=== PATIENT | female | born 1945 | race Caucasian/White ===

== ENCOUNTER 2018-02-05 13:20 | Inpatient (IN) | payer MEDICARE, BC ==
[2018-02-05] MEDS ORDERED: NS 0.9% 1000 ML* 1,000 ML IV ONE (13:21)
--- NOTE | 2018-02-05 13:29 | ED ---
Neurological HPI - HPI Summary HPI Summary: Patient is a 72 y/o F presenting to ED with complaints of seizure and stroke Sx. Katya coker called at 1304. Patient arrived at 1319, provider evaluated patient immediately at this time and sent directly to CT scan. Hx from EMS and . Pt is a 72 yo female with a medical history significant for atrial fibrillation, on eliquis. Pt this morning got dressed, came down stairs. Pts states she was holding her right arm in extension and "stiff" stating she was looking for something. states was not slurring her words, but was not able to carry a normal conversation. A neighbor, a nurse, came to [facility] pt and called 911. Pt enroute, pt developed grandmal seizure and became unresponsive. Pt enroute, MS improved. Upon arrival, pt alert and appropriate. Pt unable to give hx of this morning. Pt aware in hospital. No h/o seizure, stroke. Pt denies pain, sob, abd pain. Denies n/v/d. Upon examination, airway is good. PMHx of Afib is reported, EMS state that patient is on Eliquis. BG was 123. Patient was sent to CT at 1320. Katya moya called -Home medications and allergies are reviewed. - History of Current Complaint Stated Complaint: KATYA COKER Time Seen by Provider: 02/05/18 13:20 Hx Obtained From: Patient, Family/Personal Protection Specialist - , daughter, EMS Onset/Duration: Started hours ago - onset 1215 Current Severity: None - pain denied Number of Seizures: 1 Pain Intensity: 0 Pain Scale Used: 0-10 Numeric - 0/10 Character: Impaired Speech, Confusion, Other: - seizure, right arm stiffness Aggravating: Nothing Alleviating: Nothing Associated Signs and Symptoms: Positive: Confusion, Seizure, Impaired Speech. Negative: Headache - Allergy/Home Medications Allergies/Adverse Reactions: Allergies Allergy/AdvReac Type Severity Reaction Status Date / Time No Known Allergies Allergy Verified 02/05/18 14:02 Home Medications: Home Medications Apixaban* [Eliquis*] 5 mg PO BID 02/05/18 [History Confirmed 02/05/18] Metoprolol Tartrate TAB* [Lopressor TAB*] 150 mg PO BID 02/05/18 [History Confirmed 02/05/18] Mometasone NASAL (NF) [Nasonex (NF)] 2 spray BOTH NARES DAILY 02/05/18 [History Confirmed 02/05/18] Valsartan/HCTZ 320/25(NF) [Diovan Hct 320/25(NF)] 1 tab PO DAILY 02/05/18 [ History Confirmed 02/05/18] PMH/Surg Hx/FS Hx/Imm Hx Previously Healthy: Yes Endocrine/Hematology History: Reports: Hx Anticoagulant Therapy Cardiovascular History: Reports: Hx Atrial Fibrillation Denies: Hx Hypercholesterolemia, Hx Hypertension Sensory History: Denies: Hx Legally Blind, Hx Deafness Opthamlomology History: Denies: Hx Legally Blind EENT History: Denies: Hx Deafness Neurological History: Denies: Hx CVA, Hx Seizures - Family History Known Family History: Negative: Blood Disorder - Social History Alcohol Use: Occasionally Substance Use Type: Reports: None Smoking Status (MU): Never Smoked Tobacco Review of Systems Positive: Other - MA changes Eyes: Negative ENT: Negative Negative: Shortness Of Breath Negative: Abdominal Pain, Vomiting, Diarrhea, Nausea Neurological: Other - POSITIVE - SEIZURE, RIGHT ARM STIFFNESS, IMPAIRED SPEECH Negative: Headache Psychological: Other - POSITIVE - CONFUSION All Other Systems Reviewed And Are Negative: Yes Physical Exam - Summary Physical Exam Summary: Vital Signs Reviewed: Yes A+O to name, not place, year or president Eyes: Conjunctiva Clear, FIONA. EOM intact and full pt with right visual field cut, mild neglect ENT: Hearing grossly normal TM x 2 clear, pt with dried blood lips, small lac to tongue. No airwar concern/edema. Pt states teeth feel wnl mmoist, uvula midline, no exudate, no erythema Neck: Positive: Supple Respiratory: Positive: No respiratory distress, No accessory muscle use + CTA throughout no w/r Cardiovascular: raoid irregular, nl s1, s2 no m/r CBT <2 sec abd soft + BS nt/nd no guarding, no distension Musculoskeletal Exam: + upper ext elevation against gravity, + SLE Neurological: Positive: Alert - see NIH - left visual field deficit, intermittent right side neglect +FNF intermittent poor second to right neglect+ heel/mejia b/l Psychological: Positive: Normal Response To Family Skin: Positive: no rash, no ecchymosis - dried blood to lip Triage Information Reviewed: Yes Diagnostics - Laboratory Result Diagrams: 02/05/18 13:48 02/05/18 14:47 Lab Statement: Any lab studies that have been ordered have been reviewed, and results considered in the medical decision making process. - Radiology CXR Radiology Interpretation Completed By: Radiologist Summary of Radiographic Findings: IMPRESSION: NO ACTIVE CARDIOPULMONARY DISEASE. THIS REPORT WAS REVIEWED BY ED PHYSICIAN. - CT brain ct CT Interpretation Completed By: Radiologist Summary of CT Findings: IMPRESSION: No intracranial mass or hemorrhage is noted. This report was reviewed by ED physician. cta head/neck CT Interpretation Completed By: Radiologist Summary of CT Findings: IMPRESSION: 1. 1.9 CM LOBULATED NODULE OF THE RIGHT LUNG APEX. THE DIFFERENTIAL INCLUDES PULMONARY. PARENCHYMAL NEOPLASM. RECOMMEND CONSIDERATION OF FURTHER EVALUATION WITH DEDICATED IMAGING. OF THE CHEST, INCLUDING PET/CT AND/OR CONSIDERATION OF TISSUE SAMPLING. 2. ATHEROMATOUS DISEASE, WITHOUT INTERNAL CAROTID ARTERY STENOSIS BY NASCET CRITERIA. 3. NO ANEURYSM, VASCULAR MALFORMATION, OCCLUSION, OR STENOSIS OF THE VISUALIZED. INTRACRANIAL CIRCULATION. 4. THERE IS A HIGH ENTRY OF THE RIGHT VERTEBRAL ARTERY INTO THE FORAMEN TRANSVERSARIUM. WHICH IS CONSIDERED AN ANATOMIC VARIANT, BUT MAY PREDISPOSE TO DISSECTION. THIS REPORT WAS REVIEWED BY ED PHYSICIAN. - EKG 1335 Cardiac Rate: Other Rate - afib with rate of 142 BPM EKG Rhythm: Atrial Fibrillation Summary of EKG Findings: EKG showed rapid afib with rate of 142 BPM, no acute changes. NIH Scale - NIH Scale Level of Consciousness: Alert/Keenly Responsive Ask Patient the Month and His/Her Age: One Correct/Not Aphasic Ask Pt to Open/Close Eyes and Framing Specialist/Release Non-Paretic Hand: Both Correctly Best Gaze (Only Horizontal Eye Movement): Normal Visual Field Testing: Complete Hemianopia Facial Paresis-Pt to Smile & Close Eyes or Grimace Symmetry: Normal/Symmetrical Motor Function - Right Arm: No Drift-Holds 10 Seconds Motor Function - Left Arm: No Drift-Holds 10 Seconds Motor Function - Right Leg: No Drift-Holds 10 Seconds Motor Function - Left Leg: No Drift-Holds 10 Seconds Limb Ataxia-Must be out of Proportion to Weakness Present: Absent Sensory (Use Pinprick to Test Arms/Legs/Trunk/Face): Normal Best Language (Describe Picture, Name Items): No Aphasia Dysarthria (Read Several Words): Normal Extinction and Inattention: Inattention Total Score: 4 Re-Evaluation - Re-Evaluation First Eval Re-Evaluation Time: 13:30 Comment: Patient had returned from CT, Dr. Perez in to evaluate patient with Dr. Villagran at this time, stroke scale obtained. Will start cardizem drip with bolus for rapid afib. will send for CTA. 1000mg Keppra Second Eval Re-Evaluation Time: 13:50 Comment: Pt improved, mentation improved with hx, continues disoriented. labs reveal decreased potassium, calcium - will recheck ? from IVF. CTA without acute obstruction. Cardizem drip just started. will plan to admit to [facility] after discussion with . Of note, pt with lubular finding upper lung field on neck CTA. d/w pt. and daugher - will likley be further eval during admission - state understanding and agreement with plan Third Eval Re-Evaluation Time: 15:35 Comment: repeat labs normal. Dr Hyde accepting pt Course/Dx - Course Course Of Treatment: Patient presents by EMS. Patient's feels he with a history of A. fib. This morning patient had some unusual behaviors with extension of her right arm and some confusion. Patient's had a neighbor evaluated patient. There is concern for stroke some patient had a grand mal seizure. Patient unresponsive but has improved. Patient noted be in rapid A. fib at today's evaluation. Upon arrival patient with a laceration to her tongue and dry blood on her oropharynx. Patient's noted to have good movement of her thumb is fine 4. Patient does have right visual field cut since intermittent right-sided neglect. Will closely was called. Dr. Villagran summoned to ED. We'll monitor closely. - Diagnoses Provider Diagnoses: New onset seizure, Change in mental status, Rapid atrial fibrillation During the Visit The Following Alert/Code Occurred: Code Moya - 1304 - Physician Notifications Discussed Care Of Patient With: Anaya Braxton Time Discussed With Above Provider: 13:33 Instructed by Provider To: Other - Dr. Braxton called with preliminary readings of brain CT at 1333. 1342 - Dr. Villagran recommends CTA Head, he is agreeable with cardizem. 1445 - discussed results of imaging further with Dr. Villagran, he recommends patient be placed on Keppra 1000 mg and admission. 1529 - Patient's case was discussed with Dr. Hyde, Dr. Hyde accepts for admission. - Critical Care Time Critical Care Time: 30-74 min Discharge - Sign-Out/Discharge Documenting (check all that apply): Patient Departure - ADMIT - Discharge Plan Condition: Stable Disposition: ADMITTED TO [facility] Referrals: No Primary Care Phys,NOPCP [Primary Care Provider] - - Billing Disposition and Condition Condition: STABLE Disposition: Admitted to [facility] - Attestation Statements Document Initiated by Scribe: Yes Documenting Scribe: MERNA LEBRON Provider For Whom Cornel is Documenting (Include Credential): FOZIA PEREZ MD Scribe Attestation: MERNA Juárez, scribed for FOZIA PEREZ MD on 02/05/18 at 1541. Scribe Documentation Reviewed: Yes Provider Attestation: The documentation as recorded by the MERNA gutierrez accurately reflects the service I personally performed and the decisions made by me, FOZIA PEREZ MD Status of Scribe Document: Viewed
[2018-02-05] MEDS ORDERED: Diltiazem IV* 5 MG/ML 5 ML VIAL (for loading dose/IV Push) (25 MG) ONE (13:38)
[2018-02-05] MEDS ORDERED: levETIRAcetam IV* 1,000 MG in NS 0.9% 100 ML* 100 ML IVPB ONE (13:42)
[2018-02-05] MEDS ORDERED: Diltiazem IV* 5 MG/ML 5 ML VIAL (for loading dose/IV Push) (25 MG) IV SLOW PU ONE (13:46)
[2018-02-05 13:57] LABS: ABS Basophils 0.1 10^3/ul (0-0.2); ABS Eosinophils 0.1 10^3/ul (0-0.6); ABS Lymphocytes 1.8 10^3/ul (1.0-4.8); ABS Monocytes 0.6 10^3/ul (0-0.8); ABS Neutrophils 6.5 10^3/ul (1.5-7.7); ABS Nucleated RBC 0 10^3/ul; Eosinophil % 0.8 %; Hematocrit 29 % (35-47); Hemoglobin 9.7 g/dl (12.0-16.0); Lymphocyte % 20.3 %; Mean Corpuscular HGB Conc 34 g/dl (31-36); Mean Corpuscular Hemoglobin 32 pg (27-31); Mean Corpuscular Volume 95 fL (80-97); Mean Platelet Volume 8.3 fL (7.4-10.4); Nucleated Red Blood Cells % 0; Platelet Count 131 10^3/ul (150-450); Red Blood Count 3.04 10^6/ul (4.00-5.40); Red Cell Distribution Width 13 % (10.5-15); White Blood Count 9.1 10^3/ul (3.5-10.8)
[2018-02-05] MEDS ORDERED: levETIRAcetam IV* 500 MG/5 ML VIAL ONE (14:04)
[2018-02-05 14:06] LABS: Activated Partial Thrombo Time 33.3 seconds (26.0-36.3); INR 1.42 (0.77-1.02)
[2018-02-05 14:14] LABS: Albumin/Globulin Ratio 1.4 (1-3); BUN/Creatinine Ratio 30.2 (8-20); EGFR Non-African American 143.9 (>60); Globulin 1.4 g/dL (2-4); HDL Cholesterol 18.9 mg/dL; Total Bilirubin 0.3 mg/dL (0.2-1.0); Total Protein 3.4 g/dL (6.4-8.9)
[2018-02-05 14:19] LABS: Calcium 4.4 mg/dL (8.6-10.3); Potassium 1.9 mmol/L (3.5-5.0)
[2018-02-05] MEDS ORDERED: Iodixanol* (CONTRAST) 320 MG/ML 100 ML SDV IV ONE (14:24)
[2018-02-05] MEDS: Diltiazem IV VIAL* 125 MG in NS 0.9% 100 ML* 100 ML IVPB ONE ×4 (14:55→16:54)
[2018-02-05 15:20] LABS: Calcium 9.2 mg/dL (8.6-10.3); EGFR Non-African American 51.4 (>60); Potassium 3.4 mmol/L (3.5-5.0)
[2018-02-05 15:22] LABS: Urine Appearance Clear; Urine Bilirubin Negative (Negative); Urine Blood Negative (Negative); Urine Color Yellow; Urine Glucose Negative (Negative); Urine Ketones Negative (Negative); Urine Nitrite Negative (Negative); Urine Protein Negative (Negative); Urine Specific Gravity 1.014 (1.010-1.030); Urine Urobilinogen Negative (Negative)
[2018-02-05] MEDS ORDERED: Acetaminophen TAB* 325 MG PO PRN (16:40)
[2018-02-05] MEDS ORDERED: Ondansetron INJ* 2 MG/ML VIAL IV PRN (16:40)
[2018-02-05] MEDS ORDERED: Potassium Chlor TAB* 20 MEQ TAB.ER PO ONE (16:40)
[2018-02-05] MEDS ORDERED: NS 0.9% 1000 ML* 1,000 ML IV SCH (16:45)
--- NOTE | 2018-02-05 17:39 | CONS ---
NEUROLOGY CONSULTATION: DATE OF CONSULT: 02/05/18 LOCATION: She is in the emergency room. REFERRING PHYSICIAN: Dr. Karissa Paniagua. CHIEF COMPLAINT: Seizures. HISTORY OF PRESENT ILLNESS: Adrianna Gross is a 72-year-old right-handed woman who was brought in by ambulance today after an observed seizure at home and another one in the ambulance. The history is from the patient, her , and ambulance reports. She apparently was with a neighbor and had an observed episode of head deviation, arm elevation, and then convulsive activity. An ambulance was summoned and by verbal report from Dr. Paniagua, she had an observed convulsion in the ambulance as well also accompanied by arm elevation and head deviation. Direction is not specified. In the emergency room, she was confused but gradually clearing. She reports that she has no history of stroke or seizure when I was called to evaluate her for code moncada. She is on Eliquis chronically for atrial fibrillation. Last known well was when she was apparently early this morning with a friend. The exact time is not known. Her was not with her at that time but is present in the emergency room. As I was evaluating her, she was able to follow commands, but then became somewhat confused looking. She had some left eye deviation which then resolved. Initially, she was not able to raise her right arm, but within a couple of minutes she was able to raise her right arm well. However, through the course of the evaluation, she had a right homonymous hemianopia. PAST MEDICAL HISTORY: Notable for chronic atrial fibrillation, chronic anticoagulation with Eliquis, hypertension. REVIEW OF SYSTEMS: Negative for headache, visual complaints, abdominal problems , recent falls, chest pain. PHYSICAL EXAM: Temperature 99.2, blood pressure was fluctuating and was up close to 180/140, heart rate is tachycardic at about 140 to 150 on the monitor. Respiratory rate 21, oxygen saturation 95% on supplemental oxygen. Heart tones were distant but I did not hear any murmurs. Neck was supple. There are no cervical bruits. She had fresh blood on her lips and chin and had bitten her tongue. Neurologically, eye movements varied from mid position to left gaze deviation. I could not get her to track to the right well. She had right hemianopsia. Optic discs look sharp. Facial musculature revealed mild central pattern right facial weakness. It was somewhat intermittent. Facial sensation to pin and light touch was diminished. Speech was mildly dysarthric. Motor exam revealed variable weakness of the right arm. At times, she could raise it up quite well and at other times she seemed to be somewhat neglectful of it. She was able to raise both legs well and the left arm well. She had difficulty on [id number] because of visual tracking issues. Finger taps were normal in the left and a little clumsy on the right. She was able to answer questions coherently other than brief lapses. She was able to state the month, her name, and location. DIAGNOSTIC STUDIES/LAB DATA: Laboratory data includes a CT of the brain, which I reviewed the images of and which has been interpreted as normal. Chest x-ray interpreted as normal. CT angiogram report is pending. I reviewed the images and I do not see any large vessel intracranial stenosis, but there may be some extracranial internal carotid stenosis. It does not look critical, but I am awaiting the radiologist' s report and review. Laboratory studies are somewhat questionable because of major abnormalities in the chemistries and are being repeated. Specifically, her potassium is 1.9, chloride 124, lactic acid 4.3, and calcium is just 4.4. This is so with an albumin of 2.0 and globulin 1.4. Platelet count is a little low at 131,000. IMPRESSION AND PLAN: Impression is that of new-onset seizures, possibly associated cerebrovascular event. At this point, she is on Eliquis and not a tPA candidate. I do not see evidence of a large vessel intracranial stenosis, but I am awaiting the radiologist's interpretation. I have recommended giving her Keppra [address] Paniagua, who has put in the order. I do not see a role for antiplatelet therapy right now. If she does have carotid stenosis and no large vessel intracranial lesion, then she may be a carotid endarterectomy candidate. I will await the CTA interpretation before making further recommendations but will continue to follow. [id number]/[facility] #: [id number] FRANSISCA
[2018-02-05] MEDS: Diltiazem IV VIAL* 125 MG in NS 0.9% 100 ML* 100 ML IV SCH (18:00)
[2018-02-05] MEDS: Metoprolol Tartrate TAB* 50 mg PO SCH (19:39)
--- NOTE | 2018-02-05 19:51 | HP ---
CC: Dr. Best; Dr. Villagran * HISTORY AND PHYSICAL: DATE OF ADMISSION: 02/05/18 PRIMARY CARE PROVIDER: Dr. Best. ATTENDING PHYSICIAN WHILE IN THE HOSPITAL: Viktoria Hyde DO * (report dictated by Claudio Nguyen NP). CONSULTING NEUROLOGIST: Dr. Villagran. CHIEF COMPLAINT: 1. Altered mental status. 2. Right-sided weakness. 3. Seizure. HISTORY OF PRESENT ILLNESS: Ms. Gross is a 72-year-old female patient who carries a history of hyperlipidemia, hypertension, and atrial fibrillation, who woke up this morning, she was feeling well, around 7 o'clock let her dog out, she was doing her normal activities that she does first thing in the morning, she seemed to be at her baseline, and then around 10 o'clock to 11 o'clock, it was noted by her that she was reaching for things and she seemed confused. She was talking, her voice was softer than it normally is. He was concerned because it just was not going away after about an hour. She was restless. When she would go to sit down, she kept getting up. The patient's was concerned and he actually got their neighbor to come to see her, who happens to be a nurse and the nurse was concerned that she may be weak on her right side, so she asked him to call 911 and she was brought in. The did note that the right side did appear to be weak. There were no reports of facial drooping. He did state that the speech seemed to be different , she seemed to be confused. There was no loss of consciousness or seizure activity at that point. The patient says that she does not recall the ambulance , she remembers getting here. According to ambulance notes, she did appear to have what appeared to be a seizure, she bit her tongue, she became stiff and had jerking motions of her lips and eyes and stiff on her right side and there was some twitching of her right hand. They were concerned that she may have had a seizure and she came into the hospital. When she was here, a code antwan was called. The patient denies any recent changes in medications. No fevers or chills. She denied having any abdominal pain. Again, there was no loss of consciousness, no vomiting or diarrhea, but there was concern because of this possible stroke or CVA and altered mental status, so the patient was brought into the hospital to be evaluated. PAST MEDICAL HISTORY: Significant for: 1. Hyperlipidemia. 2. Hypertension. 3. AFib. PAST SURGICAL HISTORY: Denied. HOME MEDICATIONS: Include: 1. Diovan/hydrochlorothiazide 1 tablet daily. 2. Nasonex 2 sprays both nares daily. 3. Metoprolol tartrate 150 mg p.o. b.i.d. 4. Apixaban 5 mg p.o. b.i.d. ALLERGIES TO MEDICATIONS: Include no known drug allergies. FAMILY HISTORY: Her mother had carotid artery disease. Father's history is unknown. SOCIAL HISTORY: She does not smoke. She rarely drinks alcohol. Surrogate decision maker is her . REVIEW OF SYSTEMS: There is no documented fever. She denied having any significant weight change. There is no double vision. She denies having any ear discharge. There is no rhinorrhea, no sore throat, no thyroid enlargement. She denied having any chest pain. There is no orthopnea. There is no nocturnal dyspnea. She denied having any abdominal pain. There is no nausea. There is no vomiting. There is no dysuria, no frequency. There was a seizure questionable and there was loss of consciousness. Review of 14 systems was completed, all others negative. PHYSICAL EXAMINATION GENERAL: At this time, Ms. Gross is a 72-year-old female patient. She is sitting in the ED stretcher. She does not appear to be in any acute distress. She is now awake and alert. VITAL SIGNS: Blood pressure 141/102, pulse of 138, respirations were 20, O2 sat 95%, temperature 99.2. HEENT: Head: Atraumatic and normocephalic. Eyes: EOMs are intact. Sclerae anicteric and not pale. Throat: Oral mucosa appears to be moist. No oropharyngeal erythema. NECK: Supple. LUNGS: Clear to auscultation. No wheezes, rales, or rhonchi. HEART: Heart sounds S1, S2. She does have an irregularly irregular rate. No murmurs, rubs, or gallops. ABDOMEN: Soft. It was flat. Bowel sounds were present. EXTREMITIES: Pulses were 2+ throughout. She had no peripheral edema. NEUROLOGIC: She is awake. She is alert. She is oriented x3. Her cranial nerves II through XII were intact. Gljuct-nq-jhom intact bilaterally. There was no limb ataxia. No drift. No pronator drift was noted. She does have equal sensation to her lower and upper extremities. She at this point again has no gross focal deficits. SKIN: Intact. DIAGNOSTIC STUDIES/LAB DATA: Her labs today: WBC of 9.1, RBC of 3.04, hemoglobin of 9.7, hematocrit of 29, platelet count of 131. INR 1.42, PTT of 32.3. Her sodium was 139, potassium 3.4, chloride of 103, bicarb 25, BUN 21, creatinine of 1.05, glucose 146. Her calcium was 9.2, mag 2.0. I do note the initial labs at 1348, which appear to be contaminated possibly with IV fluids, do note the sodium was 145, the potassium was reported as 1.9 and bicarb was 12 and the fact that her potassium is 4.4; however, with no intervention, on repeat labs an hour after, they were significantly improved. Her troponin was 0.03. AST of 14, ALT 12, total bili 0.3. Albumin of 2.0. Urine obtained today was negative. She had CT of the brain, impression: No intracranial mass or hemorrhage is noted. Chest x-ray: No active cardiopulmonary disease. Head CTA showed a 1.9 cm lobulated nodule of the right lung apex, differential includes pulmonary parenchymal neoplasm, recommend consideration for further evaluation with dedicated imaging of the chest and/or tissue sampling, atheromatous disease without internal carotid artery stenosis by NASCET criteria. No aneurysm, vascular malformation, occlusion, or stenosis of the visualized intracranial circulation. There is a high entry of the right vertebral artery in the foramen transversarium, which is considered an anatomic variant but predisposed to dissection. EKG obtained today. I do not have a previous for comparison. It could be atrial flutter with a 2:1 block as she is pretty regular but I do not see P- waves, so it could also be atrial fibrillation. There is no ST elevation. There is diffuse ST depression, probably rate related. Old medical records were reviewed. ASSESSMENT AND PLAN: Ms. Gross is a 72-year-old female patient coming into the ED today with complaints of seizure, altered mental status. She will be admitted under inpatient status for: 1. Altered mental status, possible stroke versus seizure. Again, at this point , it is concerning with the 1.9 cm nodule of the chest that she may certainly have metastatic disease causing seizure that needs to be ruled out. Unfortunately, she had a CTA of the head and neck already, for which she cannot have gadolinium for 48 hours. I do note that her GFR is borderline and she already got a contrast dye today. I have ordered a CTA of the chest. I am considering waiting to do this tomorrow after some overnight hydration. I am going to touch base with my attending about this. She needs a CTA of the chest , she needs an MRI of the brain. I will order an MRI with gadolinium. I have also consulted Oncology to evaluate the lung mass. She is on apixaban already, so I am holding on aspirin currently. We will get a lipid panel, A1c, neuro checks, and we have put her on Keppra, to start 500 b.i.d. has been ordered per recommendations of Neurology. She was loaded with a gram. 2. Lung mass. Again, we are going to try to get a CTA of the chest. Oncology has been consulted. 3. Hyperlipidemia. Checking lipid panel. Continue meds as prescribed. 4. Hypertension. Continue meds as prescribed. 5. Atrial fibrillation. Her rate is not well controlled currently. We will continue with apixaban, in addition to this I have ordered diltiazem drip. We will put her back on her Lopressor. She will be placed in the ICU for rate control and we will continue to follow. I will get her potassium back to around 4. I will replace this and we will continue to follow. 6. DVT prophylaxis: We will continue apixaban. 7. Code status: Full code. 8. Fluids, electrolytes, and nutrition: She can have a heart-healthy diet. TIME SPENT: Time spent on the admission was 60 minutes, greater than half of the time was spent [id number] with the patient obtaining my history and physical, other half of the time was spent going over the plan of care with the patient and implementing plan of care. I did discuss the plan of care with my attending Dr. Hyde, and she is in agreement. CLAUDIO NGUYEN NP [id number]/[facility] #: [id number] FRANSIS[place]
[2018-02-05] MEDS ORDERED: levETIRAcetam IV* 1,000 MG in NS 0.9% 100 ML* 100 ML IVPB SCH (21:00)
[2018-02-05] MEDS: Apixaban* 5 MG TAB PO SCH (21:03)
[2018-02-05] MEDS: levETIRAcetam 500 MG IVPREMIX* 500 MG/100 ML BAG IVPB SCH (21:08)
[2018-02-06] MEDS ORDERED: NS 0.9% 500 ML* 500 ML IV ONE (02:43)
[2018-02-06 05:46] LABS: ABS Basophils 0.1 10^3/ul (0-0.2); ABS Eosinophils 0.2 10^3/ul (0-0.6); ABS Neutrophils 5.8 10^3/ul (1.5-7.7); ABS Nucleated RBC 0 10^3/ul; Eosinophil % 1.5 %; Hematocrit 42 % (35-47); Hemoglobin 14.4 g/dl (12.0-16.0); Lymphocyte % 30.1 %; Mean Corpuscular HGB Conc 34 g/dl (31-36); Mean Corpuscular Hemoglobin 32 pg (27-31); Mean Corpuscular Volume 95 fL (80-97); Mean Platelet Volume 8.8 fL (7.4-10.4); Nucleated Red Blood Cells % 0.1; Platelet Count 176 10^3/ul (150-450); Red Blood Count 4.47 10^6/ul (4.00-5.40); Red Cell Distribution Width 13 % (10.5-15); White Blood Count 10.1 10^3/ul (3.5-10.8)
[2018-02-06 06:05] LABS: BUN/Creatinine Ratio 17.2 (8-20); Calcium 8.9 mg/dL (8.6-10.3); EGFR Non-African American 63.8 (>60); HDL Cholesterol 38.1 mg/dL
[2018-02-06 06:23] LABS: Urine Appearance Clear; Urine Bilirubin Negative (Negative); Urine Blood Negative (Negative); Urine Color Yellow; Urine Glucose Negative (Negative); Urine Ketones Negative (Negative); Urine Nitrite Negative (Negative); Urine Protein Negative (Negative); Urine Urobilinogen Negative (Negative)
[2018-02-06] MEDS ORDERED: Iodixanol* (CONTRAST) 320 MG/ML 100 ML SDV IV ONE (07:30)
[2018-02-06] MEDS: Metoprolol Tartrate TAB* 50 mg PO SCH ×3 (08:25→18:22)
[2018-02-06] MEDS: levETIRAcetam 500 MG IVPREMIX* 500 MG/100 ML BAG IVPB SCH ×2 (08:45→20:43)
[2018-02-06] MEDS: Apixaban* 5 MG TAB PO SCH (08:45)
[2018-02-06] MEDS ORDERED: Digoxin IV* 0.5 MG/2 ML AMP (0.25 MG/ML) IV SLOW PU ONE (12:01)
[2018-02-06] MEDS ORDERED: Digoxin IV* 0.5 MG/2 ML AMP (0.25 MG/ML) ONE (12:15)
[2018-02-06] MEDS: Diltiazem IV VIAL* 125 MG in NS 0.9% 100 ML* 100 ML IV SCH (12:39)
--- NOTE | 2018-02-06 16:20 | PN ---
Subjective Date of Service: 02/06/18 Interval History: Pt feels back to her baseline. Has no complaints. Did not remember seizure yesterday Objective Active Medications: Acetaminophen (Tylenol Tab*) 650 mg PO Q4H PRN PRN Reason: FEVER/PAIN Diltiazem HCl 125 mg/ Sodium (Chloride) 125 mls @ 5 mls/hr IV Q24H MOHIT; Protocol Last Admin: 02/06/18 12:39 Dose: 5 mls/hr Levetiracetam (Keppra Iv Premix*) 500 mg in 100 mls @ 419.092 mls/hr IVPB Q12H MOHIT Last Admin: 02/06/18 08:45 Dose: 419.092 mls/hr Metoprolol Tartrate (Lopressor Tab*) 150 mg PO BID MOHIT Last Admin: 02/06/18 08:25 Dose: 150 mg Ondansetron HCl (Zofran Inj*) 4 mg IV Q6H PRN PRN Reason: NAUSEA Vital Signs - 8 hr 02/06/18 02/06/18 02/06/18 08:30 08:45 09:00 Temperature Pulse Rate 138 139 118 Respiratory 21 20 16 Rate Blood Pressure 124/89 124/92 (mmHg) O2 Sat by Pulse 95 93 92 Oximetry 02/06/18 02/06/18 02/06/18 10:00 10:27 10:30 Temperature Pulse Rate 124 129 133 Respiratory 30 17 20 Rate Blood Pressure 106/91 96/77 (mmHg) O2 Sat by Pulse 95 96 96 Oximetry 02/06/18 02/06/18 02/06/18 10:56 11:00 11:30 Temperature Pulse Rate 122 119 Respiratory 21 19 24 Rate Blood Pressure 106/78 109/83 (mmHg) O2 Sat by Pulse 93 96 Oximetry 02/06/18 02/06/18 02/06/18 11:46 12:00 12:01 Temperature 99 F Pulse Rate 96 103 Respiratory 17 21 Rate Blood Pressure 109/69 (mmHg) O2 Sat by Pulse 96 95 Oximetry 02/06/18 02/06/18 02/06/18 12:31 13:00 13:01 Temperature Pulse Rate 88 119 Respiratory 15 18 19 Rate Blood Pressure 118/62 82/66 (mmHg) O2 Sat by Pulse 91 95 Oximetry 02/06/18 02/06/18 02/06/18 13:17 13:30 14:00 Temperature Pulse Rate 101 79 113 Respiratory 18 20 24 Rate Blood Pressure 120/72 117/71 (mmHg) O2 Sat by Pulse 93 93 95 Oximetry 02/06/18 02/06/18 02/06/18 14:01 14:31 15:00 Temperature Pulse Rate 89 92 Respiratory 23 21 17 Rate Blood Pressure 123/109 115/68 82/68 (mmHg) O2 Sat by Pulse 96 94 Oximetry 02/06/18 02/06/18 02/06/18 15:32 15:47 16:00 Temperature Pulse Rate 94 111 Respiratory 22 24 20 Rate Blood Pressure 102/80 (mmHg) O2 Sat by Pulse 95 93 Oximetry 02/06/18 16:02 Temperature Pulse Rate 101 Respiratory 16 Rate Blood Pressure 125/86 (mmHg) O2 Sat by Pulse 93 Oximetry Oxygen Devices in Use Now: None Appearance: 72 yo F in nAD, AAOx3 Eyes: No Scleral Icterus, PERRLA Ears/Nose/Mouth/Throat: NL Teeth, Lips, Gums, Mucous Membranes Moist Neck: NL Appearance and Movements; NL JVP, Trachea Midline Respiratory: Symmetrical Chest Expansion and Respiratory Effort Cardiovascular: NL Sounds; No Murmurs; No JVD, - - irregular Abdominal: NL Sounds; No Tenderness; No Distention, No Hepatosplenomegaly Lymphatic: No Cervical Adenopathy Extremities: No Edema, No Clubbing, Cyanosis Skin: No Rash or Ulcers, No Nodules or Sclerosis Neurological: Alert and Oriented x 3, NL Muscle Strength and Tone Result Diagrams: 02/06/18 05:33 02/06/18 05:33 Microbiology and Other Data: Microbiology 02/05/18 18:02 Nasal Screen MRSA (PCR) - Final Nasal Mrsa Not Detected Assess/Plan/Problems-Billing Assessment: 72 yo F with h/o a. fib(on Eliquis) presents after AMS and seizure like activity - Patient Problems (1) Seizure Comment: cont seizure precautions and Keppra appreciate neurology consult MRI brain no contrast-neg MRI with contrast scheduled in 2 days (2) Lung nodule Comment: pt never smoked, denies recent URI, poneumonia, travel D/w Dr. Willoughby, possible IR guided bx in 1-2 days, Eliquis held prior to anticipated procedure (3) Atrial fibrillation with rapid ventricular response Comment: cont home lopressor, d/c Cardizem gtt, start cardizem IR Echo pending Med records drom Dr. Bobo requested (4) DVT prophylaxis Comment: HSQ will start in AM Status and Disposition: inpatient
[2018-02-06] MEDS: Diltiazem TAB* 60 MG PO SCH ×2 (17:33→23:48)
--- NOTE | 2018-02-06 18:35 | CONS ---
NEUROLOGY FOLLOWUP: DATE OF SERVICE: 02/06/18 LOCATION: She is in the intensive care unit, bed 8. HOSPITALIST: Dr. Heaton. CHIEF COMPLAINT: Seizure. INTERVAL HISTORY: Since yesterday, Ms. Gross has not had any more seizures. She currently feels well. She is currently on Keppra 500 mg IV q.12 hours. She continues to be tachycardic and is having Cardizem. In looking through the records, she has had some hypotensive episodes earlier in the day. Medications are reviewed. In addition to Keppra, she is on digoxin, diltiazem drip, metoprolol 150 mg p.o. b.i.d., and ondansetron p.r.n. nausea. PHYSICAL EXAMINATION: On exam, she is tachycardic, running about 110 to 120 on the monitor. Most recent blood pressure 125/86, but it was 82/66 earlier this afternoon. Last temperature was 99. Neurologically, eye movements are full without nystagmus. Visual reed are full to confrontation. Facial musculature is symmetric. There is no drift in the upper extremities. There is no tremor. Finger taps are a bit slow bilaterally and symmetrically. She is quite alert and conversant. Memory seems intact and language is fluent. LABORATORY DATA: Reviewed. It is notable for normal CBC. Chemistries are unremarkable. Hemoglobin A1c is 5%. Cholesterol 154 and LDL 95. Urinalysis is unremarkable. IMAGING: MRI scan of the brain was reviewed. It was interpreted as showing some small amount of chronic ischemic changes. I reviewed it and there are 3 small bright dots in the left occipital lobe on diffusion imaging, which are dark on ADC mapping consistent with probable small acute infarction. It seems to be either in the posterior cerebral artery territory or in the watershed zone. There is no evidence of hemorrhaging. CT angiogram of the head and neck did not reveal any significant stenosis. CT of the lungs revealed a 1.9 cm lobulated nodule in the right lung apex. Eliquis is being held for lung biopsy perhaps in the beginning of the next week. She had an echocardiogram and the results are pending. She had a seizure , but so far seems to have recovered nicely. Although the MRI was read as no acute changes, I think there is either a watershed infarct or very tiny distal embolic infarction in the left occipital region. She may have been hypotensive or might have sent an embolus with her afib and had a seizure. Conversely, she may have thrown an embolus from atrial fibrillation, which might have triggered a seizure. I would recommend continuing Keppra at the current dose. Recommend continued cardiac evaluation as well as evaluation of the pulmonary nodule. I will continue to follow her along with you. [id number]/[facility] #: [id number] MTDD
[2018-02-06] MEDS ORDERED: Enoxaparin(*) 80 MG/0.8 ML SYR SUBCUT SCH (19:00)
[2018-02-06] MEDS ORDERED: Enoxaparin(*) 80 MG/0.8 ML SYR SUBCUT ONE (19:00)
--- NOTE | 2018-02-06 19:09 | ECHO ---
Patient: GERMÁN MOSQUEDA [facility] Rec#: [id number] : 1945 Date: 02/06/2018 Age: 72y Height: 165 cm / 65.0 in Weight: 76.6 kg / 168.8 lbs Sex: F BSA: 1.8 Room#: ICU 8 Admit Date#: 02/05/2018 Type: Inpatient Referring: Kayy Heaton MD Reading: Mindi Aparicio MD Polishing Machine Operator Helper: Harleen Benton RN RDCS CC: Manjula Best MD Transthoracic Echocardiogram Indication: CVA BP: 124/92 HR: 73 Rhythm: A-Fib Findings History: HTN, HLD, A. fib Technical Comments: The study quality is fair. The study is technically limited due to patient body habitus. Left Ventricle: The left ventricular chamber size is normal. Moderate concentric left ventricular hypertrophy is observed. Global left ventricular wall motion and contractility are within normal limits. There is normal left ventricular systolic function. The estimated ejection fraction is 60-65%. The assessment of diastolic function is non-diagnostic. Abnormal left ventricular diastolic filling is observed, consistent with impaired relaxation. Left Atrium: The left atrium is mildly dilated. Right Ventricle: The right ventricular chamber size and systolic function are within normal limits. Right Atrium: The right atrium is mildly dilated. The bubble study is negative. A patent foramen ovale is not demonstrated with color Doppler and agitated contrast. Aortic Valve: The aortic valve is trileaflet. The aortic valve leaflets are mildly thickened. There is aortic annular calcification. There is mild aortic regurgitation. The mean gradient of the aortic valve is 7 mmHg. The measured aortic regurgitation pressure half-time is 724 msec. Mitral Valve: The mitral valve leaflets are mildly thickened. There is mild to moderate mitral regurgitation. The mitral regurgitant jet is laterally directed. There is no evidence of mitral stenosis. Tricuspid Valve: The tricuspid valve leaflets are normal. There is mild tricuspid regurgitation. No pulmonary hypertension is noted. There is no tricuspid stenosis. Pulmonic Valve: The pulmonic valve appears normal. There is a trace pulmonic regurgitation. There is no pulmonic stenosis. Pericardium: There is no significant pericardial effusion. Aorta: There is no dilatation of the ascending aorta. There is no dilatation of the aortic arch. There is no dilation of the aortic root. Pulmonary Artery: The main pulmonary artery appears normal. Venous: The inferior vena cava appears normal in size. There is an approximate 50% respiratory change in the inferior vena cava dimension. Contrast: Normal saline was used as contrast for the bubble study. Images 27-29. Conclusions The patient was in atrial flutter throughout the study. Moderate concentric left ventricular hypertrophy is observed. Global left ventricular wall motion and contractility are within normal limits. The estimated ejection fraction is 60-65%. The right ventricular chamber size and systolic function are within normal limits. No evidence of a patent foramen ovale demonstrated with color Doppler and agitated contrast. There is mild aortic regurgitation. There is mild to moderate mitral regurgitation. There is mild tricuspid regurgitation. Compared with prior echo of 04/27/2005, LV function is stable, MR has increased from trace, AI has increased from trace, TR stable. PA pressure previously 37 mmHg. Measurements Name Value Normal Range RVIDd (AP) 2D 3 cm (0.9 - 2.6) RVDdMajor (2D) 3.3 cm (2.2 - 4.4) RAd ISD 4CH 5.2 cm (3.4 - 4.9) RA (A4C)W 3.2 cm (2.9 - 4.6) IVSd (2D) 1.4 cm (0.6 - 1) LVPWd (2D) 1.4 cm (0.6 - 1) LVIDd (2D) 4.1 cm (3.6 - 5.4) LVIDs (2D) 3 cm - LV FS (2D) 27 % (25 - 45) Aortic Annulus 1.7 cm (1.4 - 2.6) Ao root diameter (2D) 2.7 cm (2.1 - 3.5) Ascending Ao 2.8 cm (2.1 - 3.4) Aortic arch 2.2 cm (1.8 - 3.4) LA dimension (AP) 2D 4 cm (2.3 - 3.8) LAd ISD 4CH 5.9 cm (2.9 - 5.3) LA ISD 4CH W 4.3 cm (2.5 - 4.5) Name Value Normal Range LA ESV BP (A/L) index 37.9 ml/m2 - Name Value Normal Range MV E-wave Vmax 1.1 m/sec - MV deceleration time 176 msec - LV septal e' Vmax 0.06 m/sec - LV lateral e' Vmax 0.08 m/sec - LV E:e' septal ratio 18.3 ratio - LV E:e' lateral ratio 13.8 ratio - Name Value Normal Range AV Vmax 1.7 m/sec - AV VTI 28.6 cm - AV peak gradient 12 mmHg - AV mean gradient 7 mmHg - LVOT diameter 1.8 cm - LVOT Vmax 1.2 m/sec - LVOT VTI 19.8 cm - LVOT peak gradient 5 mmHg - LVOT mean gradient 3 mmHg - DOI (VTI) 0.69 ratio - DOI (Vmax) 0.71 ratio - MARKELL (continuity Vmax) 1.8 cm2 - MARKELL (continuity VTI) 1.8 cm2 - AR PHT 724 msec - MARION Vmax 0.8 m/sec - Name Value Normal Range TR Vmax 2.5 m/sec - TR peak gradient 25 mmHg - RAP 8 mmHg - RVSP 33 mmHg - IVC diameter 1.9 cm - Name Value Normal Range PV Vmax 0.89 m/sec -
[2018-02-06] MEDS ORDERED: Heparin VIAL(*) 5000 UNITS/ML VIAL (FIVE THOUSAND) SUBCUT SCH (22:00)
[2018-02-06] MEDS: Heparin VIAL(*) 5000 UNITS/ML VIAL (FIVE THOUSAND) SUBCUT SCH (23:43)
[2018-02-07] MEDS: Diltiazem TAB* 60 MG PO SCH ×2 (06:02→11:51)
[2018-02-07] MEDS: Metoprolol Tartrate TAB* 50 mg PO SCH ×2 (06:02→18:03)
[2018-02-07] MEDS: Heparin VIAL(*) 5000 UNITS/ML VIAL (FIVE THOUSAND) SUBCUT SCH (06:03)
[2018-02-07 06:34] LABS: ABS Basophils 0.1 10^3/ul (0-0.2); ABS Eosinophils 0.3 10^3/ul (0-0.6); ABS Lymphocytes 3.1 10^3/ul (1.0-4.8); ABS Monocytes 0.9 10^3/ul (0-0.8); ABS Neutrophils 4.8 10^3/ul (1.5-7.7); ABS Nucleated RBC 0 10^3/ul; Eosinophil % 3.4 %; Hematocrit 42 % (35-47); Hemoglobin 14.1 g/dl (12.0-16.0); Mean Corpuscular HGB Conc 34 g/dl (31-36); Mean Corpuscular Hemoglobin 32 pg (27-31); Mean Corpuscular Volume 94 fL (80-97); Mean Platelet Volume 9.2 fL (7.4-10.4); Nucleated Red Blood Cells % 0.1; Platelet Count 179 10^3/ul (150-450); Red Blood Count 4.44 10^6/ul (4.00-5.40); Red Cell Distribution Width 13 % (10.5-15); White Blood Count 9.1 10^3/ul (3.5-10.8)
[2018-02-07 06:48] LABS: BUN/Creatinine Ratio 13.2 (8-20); EGFR Non-African American 60.6 (>60); Magnesium 1.9 mg/dL (1.9-2.7); Potassium 3.8 mmol/L (3.5-5.0)
[2018-02-07] MEDS: levETIRAcetam 500 MG IVPREMIX* 500 MG/100 ML BAG IVPB SCH ×2 (08:39→22:05)
[2018-02-07] MEDS ORDERED: Enoxaparin(*) 80 MG/0.8 ML SYR SUBCUT ONE ×2 (09:18→20:00)
[2018-02-07] MEDS ORDERED: Digoxin IV* 0.5 MG/2 ML AMP (0.25 MG/ML) IV SLOW PU ONE ×3 (12:01→16:32)
[2018-02-07] MEDS: Diltiazem IV VIAL* 125 MG in NS 0.9% 100 ML* 100 ML IVPB SCH (14:06)
--- NOTE | 2018-02-07 16:18 | PN ---
Subjective Date of Service: 02/07/18 Interval History: Pt feels well. no complaints. Her HR had been in 130's this aM but pt denies CP/ SOB/palpitations Objective Active Medications: Acetaminophen (Tylenol Tab*) 650 mg PO Q4H PRN PRN Reason: FEVER/PAIN Enoxaparin Sodium (Lovenox(*)) 80 mg SUBCUT ONCE ONE Stop: 02/07/18 20:01 Levetiracetam (Keppra Iv Premix*) 500 mg in 100 mls @ 419.092 mls/hr IVPB Q12H MOHIT Last Admin: 02/07/18 08:39 Dose: 419.092 mls/hr Diltiazem HCl 125 mg/ Sodium (Chloride) 125 mls @ 10 mls/hr IVPB Q12H MOHIT; Protocol Last Admin: 02/07/18 14:06 Dose: 10 mls/hr Metoprolol Tartrate (Lopressor Tab*) 150 mg PO Q12H MOHIT Last Admin: 02/07/18 06:02 Dose: 150 mg Ondansetron HCl (Zofran Inj*) 4 mg IV Q6H PRN PRN Reason: NAUSEA Vital Signs - 8 hr 02/07/18 02/07/18 02/07/18 11:21 12:26 15:26 Temperature 98.7 F 98.5 F Pulse Rate 135 136 50 Respiratory 16 16 Rate Blood Pressure 124/73 (mmHg) O2 Sat by Pulse 97 95 Oximetry Oxygen Devices in Use Now: None Appearance: 72 yo F in nAD, aAOx3 Eyes: No Scleral Icterus, PERRLA Ears/Nose/Mouth/Throat: NL Teeth, Lips, Gums, Mucous Membranes Moist Neck: NL Appearance and Movements; NL JVP, Trachea Midline Respiratory: Symmetrical Chest Expansion and Respiratory Effort, Clear to Auscultation Cardiovascular: NL Sounds; No Murmurs; No JVD, RRR, - - regular, tachy Abdominal: NL Sounds; No Tenderness; No Distention, No Hepatosplenomegaly Lymphatic: No Cervical Adenopathy Extremities: No Edema, No Clubbing, Cyanosis Skin: No Rash or Ulcers, No Nodules or Sclerosis Neurological: Alert and Oriented x 3, NL Muscle Strength and Tone Result Diagrams: 02/07/18 05:57 02/07/18 05:57 Microbiology and Other Data: Microbiology 02/05/18 18:02 Nasal Screen MRSA (PCR) - Final Nasal Mrsa Not Detected Assess/Plan/Problems-Billing Assessment: 72 yo F with h/o a. fib(on Eliquis) presents after AMS and seizure like activity - Patient Problems (1) Seizure Comment: cont seizure precautions and Keppra appreciate neurology consult MRI brain no contrast-neg, buat as per d/w DR. Villagran there is a small areain left occipital lobe of likely watershed or embolic infarcts. D/w neuro if pt needs to be on an anticoagulant other than Eliquis in the future. As per neuro pt can be restarted on Eliquis after her CT guided lung bx tomorrow and the CVA and subsequent seizure is not considered Eliquis failure. MRI with contrast scheduled tomorrow ( in consideration with newly noted lung mass in pt with new onset seizure to r/o brain mets) (2) Lung nodule Comment: pt never smoked, denies recent URI, pneumonia, travel D/w Dr. Willoughby- IR guided bx planned tomorrow at 8:30 AM, Eliquis held prior to anticipated procedure. Pt is bridged with Lovenox, last dose 8 PM tonight. (3) Atrial fibrillation with rapid ventricular response Comment: As per med record from DR. Dueñas office pt was cardioverted in 2012 and in 2016 and was noted to be in NSR during most recent visit. she is also known to be in A. flutter in the past. Echo shows EF 60-65%, mod LVH, mod MR, mild AR, no PFO Due to pt's A. flutter being uncontrolled despite Cardizem IR 60 mg Q6H in addition to home Lopressor 150 BID -asked Dr. Buck to see pt in consult. Cardioversion would place pt at higher risk of cardioembolism. At this point will d/c Cardizem IR and restart Cardizem gtt till pt is post lung bx. Pt is asymptomatic from cardiac standpoint (4) DVT prophylaxis Comment: Lovenox (5) Liver cyst Comment: noted on liver US. Status and Disposition: inpatient
[2018-02-07] MEDS: Potassium Chloride LIQUID* 20 MEQ PACKET PO SCH (17:00)
--- NOTE | 2018-02-07 20:00 | CONS ---
CC: Dr. Heaton; Dr. Best; Dr. Villagran; Dr. Bobo; Dr. Kirk Buck CARDIOLOGY CONSULTATION: DATE OF CONSULT: 02/07/18 CONSULTING PHYSICIAN: Dr. Heaton. PATIENT OF: Dr. Best, Dr. Villagran, Dr. Bobo. REASON FOR EVALUATION: Atrial flutter. HISTORY OF PRESENT ILLNESS: This is a very pleasant 72-year-old woman, who was admitted with altered mental status, right-sided weakness and a seizure. She was in her usual state of health and when she was noted to be in her house doing chores, starting to reach for things that were not there, she seemed confused. Symptoms lasted at least an hour. They called 911. The did think that her speech appeared to be somewhat different, she seemed to be confused. There was no loss of consciousness. She does not remember the ambulance, but apparently was reported to have a seizure in the ambulance. She bit her tongue, became stiff and had jerky movements of her lips and eyes and stiff on the right side and there was some twitching of her right hand. She was brought to the hospital, has been evaluated and seen by a neurologist, Dr. Villagran. His belief was that there was either a watershed infarct or a very tiny distal embolic infarction in the left occipital region. She may have been hypotensive and may have sent a small embolus with her Aflutter. She was started on Keppra and because of her elevated heart rate, she was started on IV diltiazem in addition to her metoprolol. She was also given some digoxin 0.5 yesterday and 0.25 this morning. Her resting heart rate and Aflutter was better in the 80s and 90s, but with minimal stimulation, her heart rates go to 130s. She has a longstanding history of paroxysmal atrial flutter and apparently underwent cardioversion in 2012 and again in February 2016. According to the notes from [facility], she was apparently seen by an assistant professor of spanish, who offered her ablation presumably for tachycardia- induced LV dysfunction; however, she declined that. She has had no symptoms from her atrial flutter. No previous strokes or mini strokes. No chest pain or shortness of breath. She says normally she is active and goes up and down flight of stairs in the house without any problem. She walks her dog which is challenging since it is a [place] [employer] that pulls on her. She also can walk up to 30 minutes at a time without problem and did that last about 2 months ago. She denies orthopnea, PND. No peripheral edema. PAST MEDICAL HISTORY Her past medical history includes 1. longstanding paroxysmal atrial flutter and 2 cardioversions in the past. cardioversion at [facility] in January 2013 and cardioversion in February of 2016. 2. Cardiomyopathy She had an echocardiogram on 06/16/16, which revealed EF of 55 %, improved compared to February of 2016 when she was in AFib or Aflutter with poor ventricular rate control and had an EF of 45% to 50% with mildly reduced LV function, isolated basal inferior and basal inferior septal wall motion abnormalities. In November 2015, she also had some basal inferior and inferior septal wall motion abnormalities, EF of 50% to 55%, mild AI and mild MR, moderate TR. She apparently has had elevated heart rates in flutter. 3. Lung lesion: on admission here, she was noted to have a lung mass and is anticipating a biopsy tomorrow. Her chest CTA from 02/06/18 revealed nodular right upper lobe infiltrate, differential including neoplastic or infectious process, cholelithiasis, probable large cyst in the liver, recommend ultrasound. 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 She has 2 daughters, 1 is at the bedside. PAST SURGICAL HISTORY: She denies past surgeries. MEDICATIONS: Include: 1. Diltiazem IV 10 mg an hour. 2. Enoxaparin 80 mg subcu as a bridge off the Eliquis. 3. Keppra 500 mg/100 mL q.12. 4. Metoprolol tartrate 150 mg q.12. 5. Zofran 4 mg IV q.6. At home, she was also on: 1. Valsartan/hydrochlorothiazide 320/25. 2. Nasonex. 3. Eliquis 5 mg b.i.d. ALLERGIES: Include LISINOPRIL, she had a respiratory reaction and PREDNISONE with swelling. FAMILY HISTORY: Her mother at 85. Her father's medical condition is unknown. She has 2 sisters, alive and well. SOCIAL HISTORY: She is . 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 She drinks decaffeinated coffee. She has very rare alcohol. REVIEW OF SYSTEMS: Review of systems x10 was negative except as above. PHYSICAL EXAM: She is a well-developed, well-nourished female, in no apparent distress. No significant JVD. Carotids 2+ without bruits. Extraocular muscles intact. Sclerae anicteric. She is alert and oriented x3. Cardiac Exam : S1, S2 with a 2/6 holosystolic murmur at the left lower sternal border and apex. Chest was clear. No CVAT. Abdomen: Obese. Bowel sounds present. Nontender. No hepatosplenomegaly. Femoral pulses intact without bruits. Distal pulses intact. No edema. Motor strength 5/5 bilaterally. Deep tendon reflexes 2/4. Alert and oriented x3. Skin turgor normal. DIAGNOSTIC STUDIES/LAB DATA: Include a white count of 9.1, hemoglobin of 14.1, hematocrit of 42, platelet count of 179. Potassium on admission was 1.9, but corrected to 3.4 an hour later without intervention and today was 3.8, BUN of 12 , creatinine of 0.91, lactic acid was 4.3 on admission, calcium was 4.4 and now is 9. Troponin 0.03. Cholesterol was 154, LDL of 95, HDL of 38, and triglycerides of 103. EKG revealed atrial flutter, somewhat atypical with a rapid ventricular response and baseline nonspecific ST-T changes. A repeat EKG from 02/06/18 revealed elevated ventricular response of 102 with improvement in nonspecific ST -T changes. Her echocardiogram from yesterday revealed moderate LVH with normal contractility, EF of 60% to 65%. The diastolic function is nondiagnostic. Left atrium is mildly dilated. Right atrium is mildly dilated. Bubble study was negative. Aortic sclerosis, mild aortic regurgitation, [id number] MR , mild TR. Compared to previous echo from 2005, LV function is stable, MR is increased from trace, AI is increased from trace, TR stable, PA pressure previously 37 and 33 on yesterday's study. IMPRESSION AND PLAN: My impression is that Ms. Gross has a history of atrial flutter and varying degrees of left ventricular dysfunction possibly due to tachycardia-induced cardiomyopathy, we cannot exclude concomitant coronary artery disease. She also has hypertension, history of hyperlipidemia and now a cerebrovascular accident as well as a lung mass. I discussed the findings at length with her and with Dr. Heaton and for the time being, I would recommend the following: Her rate control has been fairly challenging due to her slow heart rates in the 60s overnight and rapid heart rates with any stimulation. Given the need for surgery, I suggest continuing her beta-maxx perioperatively and use IV if she is n.p.o. I would also continue IV diltiazem, so we can titrate to control her heart rate. I also suggested adding digoxin and titrating to try to better control her resting heart rate and avoid tachycardia-induced dysfunction. We would try to maintain her potassium over 4. She is being bridged with Lovenox because of a high risk for cardioembolic event. I am reluctant to attempt cardioversion at this point in time given the need to interrupt her anticoagulation. I discussed that with her and her family. At some point, if she converts to sinus rhythm, we might consider adding antiarrhythmic therapy, perhaps sotalol to try to maintain her in sinus rhythm. I would restart anticoagulation as soon as feasible from a surgical standpoint. We would avoid caffeine as you are doing. We would consider repeating her troponin and lactic acid. Further recommendations will depend on her clinical course. [id number]/[facility] #: [id number] ADDENDUM: Patient had a mildly elevated troponin. This may be related to demand ischemia due to CAD given the history of inferior wall motion abnormalities c/w RCA coronary insufficiency. Given her preserved exercise tolerance, relatively low troponins, I believe she can proceed with the planned surgery which is relatively low risk. I discussed with Dr. Heaton and will follow serial ekg's and troponins. FRANSISCA
--- NOTE | 2018-02-07 21:35 | EEG ---
ELECTROENCEPHALOGRAPHY: DATE OF STUDY: 02/07/18 REFERRING PROVIDER: Dr. Heaton. LOCATION: She is in ICU bed 8. CLINICAL PROBLEM: Seizure, tachycardia, possible stroke. MEDICATIONS: Include: 1. Zofran. 2. Lopressor. 3. Heparin. 4. Cardizem. 5. Keppra. REPORT: This 16-channel EEG is remarkable for background rhythms consisting of an occipital alpha rhythm at about 9 cycles per second, which is a bit more prominent from the right occipital derivations in the left, but otherwise is fairly symmetrical in terms of frequency. Lower voltage beta rhythms are seen bifrontally. The patient drowses and sleeps intermittently throughout the recording with vertex sharp waves and sleep spindles seen symmetrically. The patient has a rapid irregular heart rhythm on the EKG strip. There are no clinical events. There are no focal, lateralized, or epileptiform abnormalities. CLINICAL IMPRESSION: Essentially normal awake and asleep EEG of asymmetrical occipital rhythms. There are no epileptiform features to this recording. [id number]/[facility] #: [id number] [facility]
[2018-02-08] MEDS: Diltiazem IV VIAL* 125 MG in NS 0.9% 100 ML* 100 ML IVPB SCH (00:32)
[2018-02-08 06:44] LABS: BUN/Creatinine Ratio 14.4 (8-20); Calcium 9.1 mg/dL (8.6-10.3); EGFR Non-African American 61.4 (>60); Magnesium 1.9 mg/dL (1.9-2.7)
[2018-02-08 06:46] LABS: Digoxin 1.4 ng/ml (0.8-2.0)
[2018-02-08] MEDS: Metoprolol Tartrate TAB* 50 mg PO SCH ×2 (06:56→18:03)
[2018-02-08] MEDS ORDERED: Diltiazem TAB* 60 MG PO ONE (08:03)
[2018-02-08] MEDS: levETIRAcetam 500 MG IVPREMIX* 500 MG/100 ML BAG IVPB SCH ×2 (08:15→20:34)
--- NOTE | 2018-02-08 08:16 | PN ---
Subjective Date of Service: 02/08/18 Interval History: Pt is feeling well this AM. No c/o chest pain or SOB. She is awaiting the lung biopsy but understands that if her HR is not stable on oral medications alone the procedure will need to be cancelled and she will need to come back as an outpatient. Objective Active Medications: Acetaminophen (Tylenol Tab*) 650 mg PO Q4H PRN PRN Reason: FEVER/PAIN Levetiracetam (Keppra Iv Premix*) 500 mg in 100 mls @ 419.092 mls/hr IVPB Q12H [facility] Last Admin: 02/07/18 22:05 Dose: 419.092 mls/hr Diltiazem HCl 125 mg/ Sodium (Chloride) 125 mls @ 10 mls/hr IVPB Q12H [facility]; Protocol Stop: 02/08/18 08:50 Last Admin: 02/08/18 00:32 Dose: 10 mls/hr Metoprolol Tartrate (Lopressor Tab*) 150 mg PO Q12H [facility] Last Admin: 02/08/18 06:56 Dose: 150 mg Ondansetron HCl (Zofran Inj*) 4 mg IV Q6H PRN PRN Reason: NAUSEA Potassium Chloride (Klor-Con Liquid*) 20 meq PO DAILY [facility] Last Admin: 02/07/18 17:00 Dose: 20 meq Vital Signs - 8 hr 02/08/18 02/08/18 02/08/18 00:39 01:39 02:39 Temperature Pulse Rate Respiratory Rate Blood Pressure 143/92 131/82 153/84 (mmHg) O2 Sat by Pulse Oximetry 02/08/18 02/08/18 02/08/18 03:36 03:39 04:40 Temperature 98.3 F Pulse Rate 32 Respiratory 20 Rate Blood Pressure 132/82 147/86 140/114 (mmHg) O2 Sat by Pulse 95 Oximetry 02/08/18 02/08/18 02/08/18 05:14 05:39 06:39 Temperature Pulse Rate Respiratory Rate Blood Pressure 160/100 148/106 148/100 (mmHg) O2 Sat by Pulse Oximetry 02/08/18 02/08/18 02/08/18 06:44 06:57 07:37 Temperature 98.6 F Pulse Rate Respiratory 20 Rate Blood Pressure 146/95 159/94 (mmHg) O2 Sat by Pulse Oximetry Oxygen Devices in Use Now: None Appearance: Elderly female sitting up in bed, NAD Eyes: No Scleral Icterus Ears/Nose/Mouth/Throat: Mucous Membranes Moist Respiratory: Symmetrical Chest Expansion and Respiratory Effort, Clear to Auscultation Cardiovascular: NL Sounds; No Murmurs; No JVD, No Edema, - - irregularly irregular, controlled rate. Abdominal: NL Sounds; No Tenderness; No Distention Extremities: No Clubbing, Cyanosis Skin: No Nodules or Sclerosis, - - bruised arms Neurological: Alert and Oriented x 3 Result Diagrams: 02/07/18 05:57 02/08/18 06:09 Microbiology and Other Data: Microbiology 02/05/18 18:02 Nasal Screen MRSA (PCR) - Final Nasal Mrsa Not Detected Assess/Plan/Problems-Billing Ms Gross is a 72 yo F with a h/o afib (on Eliquis) who presented to the ER presents after AMS and seizure like activity. - Patient Problems (1) Atrial fibrillation with rapid ventricular response Current Visit: Yes Status: Acute Code(s): I48.91 - UNSPECIFIED ATRIAL FIBRILLATION SNOMED Code(s): 409217248317938 Comment: Pt remains at times with uncontrolled HR on metoprolol tartrate 150mg BID, digoxin load yesterday and diltiazem drip. Try to take off drip this AM (start cardizem 60mg q6hr) to move forward with lung biopsy. After procedure will need to resume eliquis. Pt received a dose of lovenox last evening. (2) Demand ischemia Current Visit: Yes Status: Acute Code(s): I24.8 - OTHER FORMS OF ACUTE ISCHEMIC HEART DISEASE SNOMED Code(s): 113757732 Comment: Pt had trop of 0.2 yesterday. Likely demand ischemia from rapid HR. Trop trended down this AM. (3) Lung nodule Current Visit: Yes Status: Acute Code(s): R91.1 - SOLITARY PULMONARY NODULE SNOMED Code(s): 558986447 Comment: Pt is off eliquis for anticipated biopsy this AM. Her HR however has been somewhat problematic and she can not have the biopsy done while on the diltiazem drip. Will try to get off the drip and on to oral medication and if her HR remains controlled then will proceed with the biopsy. If HR control is not achieved will cancel biopsy for today and have it arranged as outpatient. (4) Seizure Current Visit: Yes Status: Acute Code(s): R56.9 - UNSPECIFIED CONVULSIONS SNOMED Code(s): 36836538 Comment: Pt with likely new onset seizures related to left occipital lobe infarcts. MRI with contrast to be obtained today. Continue keppra. (5) DVT prophylaxis Current Visit: Yes Status: Acute Code(s): BAR1205 - SNOMED Code(s): 973072587 Comment: Debox (6) Full code status Current Visit: Yes Status: Acute Code(s): Z78.9 - OTHER SPECIFIED HEALTH STATUS SNOMED Code(s): 747617195 Status and Disposition: inpatient
[2018-02-08] MEDS: Potassium Chloride LIQUID* 20 MEQ PACKET PO SCH (09:11)
--- NOTE | 2018-02-08 09:35 | PN ---
<Adela Rivera - Last Filed: 02/08/18 11:29> Subjective Date of Service: 02/08/18 - AFL with labile HR control, Interval History: No events last night. She states she has no sensation of heart racing or irregularity. Denies chest pain, sob, dizziness or headache. She is sitting at edge of bed upon entering the room and adds she had a good night last night. This morning on telemetry at 0700 she had rapid ventricular rates (150's) the patient doesn't recall being out of bed or moving but was also unaware of rapid rates. Medications Active Medications: Acetaminophen (Tylenol Tab*) 650 mg PO Q4H PRN PRN Reason: FEVER/PAIN Digoxin (Lanoxin Tab*) 0.25 mg PO 1700 [facility] Levetiracetam (Keppra Iv Premix*) 500 mg in 100 mls @ 419.092 mls/hr IVPB Q12H [facility] Last Admin: 02/08/18 08:15 Dose: 419.092 mls/hr Metoprolol Tartrate (Lopressor Tab*) 150 mg PO Q12H [facility] Last Admin: 02/08/18 06:56 Dose: 150 mg Ondansetron HCl (Zofran Inj*) 4 mg IV Q6H PRN PRN Reason: NAUSEA Potassium Chloride (Klor-Con Liquid*) 20 meq PO DAILY [facility] Last Admin: 02/08/18 09:11 Dose: 20 meq Objective Vital Signs: Temp Pulse Resp BP Pulse Ox 98.6 F 32 20 160/86 95 02/08/18 07:37 02/08/18 03:36 02/08/18 07:37 02/08/18 08:39 02/08/18 03:36 Oxygen Devices in Use Now: None Eyes: No Scleral Icterus Ears/Nose/Mouth/Throat: NL Teeth, Lips, Gums, Clear Oropharnyx, Mucous Membranes Moist Neck: NL Appearance and Movements; NL JVP, Trachea Midline, No Thyroid Enlargement, Masses Respiratory: Symmetrical Chest Expansion and Respiratory Effort, Clear to Auscultation Cardiovascular: - - Normal S1, S2 Irregular rate and rhythm. no gallop or rub. no murmur Abdominal: NL Sounds; No Tenderness; No Distention Skin: No Rash or Ulcers Neurological: Alert and Oriented x 3 Lines/Tubes/Other Access: Clean, Dry and Intact Peripheral IV Laboratory Results: 02/07/18 05:57 02/08/18 06:09 INR (Anticoag Therapy) 1.42 (0.77-1.02) H 02/05/18 13:48 APTT 33.3 seconds (26.0-36.3) 02/05/18 13:48 Total Bilirubin 0.30 mg/dL (0.2-1.0) 02/05/18 13:48 AST 14 U/L (13-39) 02/05/18 13:48 ALT 12 U/L (7-52) 02/05/18 13:48 Alkaline Phosphatase 31 U/L (34-104) L 02/05/18 13:48 Total Protein 3.4 g/dL (6.4-8.9) L 02/05/18 13:48 Albumin 2.0 g/dL (3.2-5.2) L 02/05/18 13:48 Globulin 1.4 g/dL (2-4) L 02/05/18 13:48 Albumin/Globulin Ratio 1.4 (1-3) 02/05/18 13:48 Triglycerides 103 mg/dL 02/06/18 05:33 Cholesterol 154 mg/dL 02/06/18 05:33 LDL Cholesterol 95 mg/dL 02/06/18 05:33 HDL Cholesterol 38.1 mg/dL 02/06/18 05:33 02/05/18 02/07/18 02/08/18 13:48 05:57 06:09 Troponin I 0.03 0.20 H* 0.09 H* Laboratory Results - last 24 hr 02/07/18 02/07/18 02/08/18 05:57 17:36 06:09 Sodium 142 141 Potassium 3.8 4.0 Chloride 108 110 Carbon Dioxide 26 25 Anion Gap 8 6 BUN 12 13 Creatinine 0.91 0.90 Est GFR ( Amer) 73.3 74.3 Est GFR (Non-Af Amer) 60.6 61.4 BUN/Creatinine Ratio 13.2 14.4 Glucose 98 105 H Lactic Acid 0.9 Calcium 9.0 9.1 Magnesium 1.9 1.9 Troponin I 0.20 H* 0.09 H* Digoxin 1.4 Diagnostic Imaging: Echo 02/06/2018; LVEF 60-65%, moderate LVH, mild LA dilatation, no PFO seen with bubble study, mild to moderate MR, normal wall motion CTA chest negative for PE; nodular RUL infiltrate. Probable large liver cyst. Liver US; + right love liver cyst consistent with CT EKG Data: Telemetry was reviewed.Afib/flutter rates 70-150's. Currently in Afib rates 70- 80's while in room Assessment/Plan #1 h/o Paroxsymal Aflutter; Not symptomatic thus duration of time in AFL unknown. She has labile heart rate control. At 0000 and 0700 she had RVR but was not symptomatic she did not appreciate doing anything in particular at that time. IV Cardizem was discontinued and she was given a one time dose of Cardizem 60mg this morning. will Continue Lopressor 150mg PO BID and Digoxin .25mg PO daily. It is not clear if Dr. Villagran wanted BP parameters given ? CVA however I will touch base with him given uptitration of CCB may be needed. Also if she did have a CVA on Eliquis with compliance like she is reporting then switching to alternative OAC may be indicated will address this with Dr. Buck and Dr. Villagran. #2 Troponinemia; peaked at time of presentation at .20, she denies chest pain, echo revealed normal wall motion. She states she follows Dr. Goel and has never had an ischemic eval via stress test of [facility]. Thus eventually she will need risk stratification with stress test. Not at this time. Will address this prior to discharge. #3 New onset Seizure ?CVA; imaging has been non remarkable. echo did not show PFO. She is to have MRI today. No carotid disease noted by radiology on CTA head. Dr. Rodrigues following. #4 Newly found lung infiltrate; needs biopsy which was postponed today. #5 mild to moderate MR; appears compensated recommend BP control however first I need to clarify if patient needs BP parameters if any with Dr. Villagran #6 Disposition pending course. Attending: Kirk Buck <Kirk Buck - Last Filed: 02/10/18 13:02> Subjective Date of Service: 02/08/18 Objective Vital Signs: Temp Pulse Resp BP Pulse Ox 97.9 F 95 20 152/103 97 02/09/18 07:58 02/09/18 07:58 02/09/18 08:00 02/09/18 07:58 02/09/18 07:58 Laboratory Results: 02/07/18 05:57 02/08/18 06:09 INR (Anticoag Therapy) 1.42 (0.77-1.02) H 02/05/18 13:48 APTT 33.3 seconds (26.0-36.3) 02/05/18 13:48 Total Bilirubin 0.30 mg/dL (0.2-1.0) 02/05/18 13:48 AST 14 U/L (13-39) 02/05/18 13:48 ALT 12 U/L (7-52) 02/05/18 13:48 Alkaline Phosphatase 31 U/L (34-104) L 02/05/18 13:48 Total Protein 3.4 g/dL (6.4-8.9) L 02/05/18 13:48 Albumin 2.0 g/dL (3.2-5.2) L 02/05/18 13:48 Globulin 1.4 g/dL (2-4) L 02/05/18 13:48 Albumin/Globulin Ratio 1.4 (1-3) 02/05/18 13:48 Triglycerides 103 mg/dL 02/06/18 05:33 Cholesterol 154 mg/dL 02/06/18 05:33 LDL Cholesterol 95 mg/dL 02/06/18 05:33 HDL Cholesterol 38.1 mg/dL 02/06/18 05:33 02/05/18 02/07/18 02/08/18 13:48 05:57 06:09 Troponin I 0.03 0.20 H* 0.09 H* Cardiology Note Reviewed with Miguel. Will continue to adjust meds to achieve rate control. Suspect that she may have some degree of inferior ischemia based on past evidence of inferior hypokinesis with elevated hr's and mild elevation of her troponin with rapid aflutter. Ok to proceed with the relatively low risk procedure and her prior preserved exercise capacity.
[2018-02-08] MEDS ORDERED: Gadoteridol* (CONTRAST) 279.3 MG/ML 10 ML IV ONE (10:41)
[2018-02-08] MEDS: Diltiazem CD CAP* 120 MG PO SCH (14:42)
[2018-02-08] MEDS ORDERED: Digoxin TAB* 0.25 MG PO SCH (17:00)
[2018-02-09] MEDS: Metoprolol Tartrate TAB* 50 mg PO SCH (06:17)
[2018-02-09 08:02] VITALS: BP 152/103
[2018-02-09] MEDS: Potassium Chloride LIQUID* 20 MEQ PACKET PO SCH (09:23)
[2018-02-09] MEDS: levETIRAcetam 500 MG IVPREMIX* 500 MG/100 ML BAG IVPB SCH (09:23)
[2018-02-09] MEDS: Diltiazem CD CAP* 120 MG PO SCH (09:23)
[2018-02-09] MEDS ORDERED: Enoxaparin(*) 80 MG/0.8 ML SYR SUBCUT SCH (11:00)
--- NOTE | 2018-02-09 17:00 | DS ---
CONTINUATION ADDENDUM NOW INCLUDED ON THIS REPORT CC: Dr. Villagran; Dr. Best; Dr. Bobo * DISCHARGE SUMMARY: DATE OF ADMISSION: 02/05/18 DATE OF DISCHARGE: 02/09/18 PRIMARY CARE PROVIDER: Dr. Best. MANAGER PIPELINE: Dr. Bobo. PRINCIPAL DIAGNOSES: 1. Cerebrovascular accident. 2. Seizure. 3. Atrial fibrillation with rapid ventricular response. SECONDARY DIAGNOSES: 1. Hyperlipidemia. 2. Hypertension. DISCHARGE MEDICATIONS: 1. Nasonex 2 squirts in both nostrils daily. 2. Metoprolol tartrate 150 mg p.o. b.i.d. 3. Eliquis 5 mg p.o. b.i.d. 4. Potassium chloride 10 mEq p.o. daily. 5. Lovenox 80 mg subcutaneous q.12 hours to be started after stopping Eliquis prior to potential lung biopsy (I will notify the patient of when to initiate this). 6. Diltiazem CD 120 mg p.o. daily (new). 7. Digoxin 0.25 mg p.o. daily (new). HOSPITAL COURSE: Ms. Gross is a 72-year-old female who presented to the emergency room on 02/05/18 with complaints of altered mental status, right- sided weakness, and seizure. The patient had woke up normal on the day of admission and was carrying out her usual activities when at approximately 10 to 11 a.m. it was noted by her that she was reaching for things and she seemed confused. Additionally, her voice was noted to be softer than it normally was. The patient's got the neighbor who is a nurse and there was concern for right-sided weakness, and therefore the patient was brought to the emergency room for possible stroke. In the ambulance on the way to the emergency room, the patient became stiff and had jerking motions of her lips and eyes and she bit her tongue. This led to concern for possible seizure. CT scan of the brain was ultimately found to be normal. CTA of the head and neck did not reveal any aneurysm, vascular malformation, occlusion, or stenosis of the visualized intracranial circulation. Atheromatous disease with internal carotid artery stenosis was identified. There is a high entry of the right vertebral artery into the foramen transversarium, which is considered an anatomic variant but may predispose to dissection. The patient was then seen in consultation by Dr. Villagran. He felt it was possible that she had a seizure possibly related to her history of atrial fibrillation than seizure. It was recommended that she continue on Keppra. EEG was read as normal. There were no epileptiform features to this recording. The patient does have a history of atrial fibrillation, and for this, she will need to continue on anticoagulation. The patient, however, was also found to have a 1.9 cm lung nodule, and this was going to be biopsied by IR. The patient's Eliquis was held for this procedure; however, she also developed rapid atrial fibrillation and was felt to be unstable to undergo the biopsy on 02/08/18 and therefore this was postponed until she has this performed as an outpatient. The patient has subsequently received Lovenox teaching so that she can resume her Eliquis now, and when an appointment date and time is arranged for a possible lung biopsy, she will need to stop her Eliquis 48 hours before and bridge with the Lovenox up until the evening prior to the procedure. I will be contacting the patient with a date and time for the procedure on Sunday after I speak with scheduling. CONTINUATION ADDENDUM: HOSPITAL COURSE: Of note, an appointment was made for Dr. Fountain in 3 months' time. A note was made with this appointment that she will need a followup CT scan prior. I will also contact the oncology office to determine where this appointment was made and if the biopsy should be held, at which point the patient will just continue on Eliquis indefinitely. The patient also developed rapid atrial fibrillation during the course of her hospitalization. She was seen in consultation by Dr. Buck. Adjustments were made with her rate controlling regimen. Diltiazem 120 mg p.o. daily and digoxin 0.25 mg p.o. daily were added to her medication regimen. With this, her heart rate has been under control. As above, the patient will be on Eliquis for now and if biopsy is needing to be performed then I will contact her and tell her when to hold her Eliquis and to begin the Lovenox and how to bridge this. Also of note, the patient did undergo MRI of the brain with contrast to rule out potential metastatic disease related to the pulmonary nodule seen on CTA of the chest. The MRI of the brain with contrast did not reveal any evidence to suggest metastatic disease. The patient was also found to have an elevated troponin of 0.2 on 02/07/18. My suspicion is that this is demand ischemia related to her atrial fibrillation. The patient has never had an ischemic workup and an outpatient stress test would be warranted. The patient can follow up with Dr. Bobo to discuss this further. FOLLOWUP CONCERNS: The patient is being discharged home today, 02/09/18. ACTIVITY LEVEL: As tolerated. DIET: Heart-healthy. CONDITION ON DISCHARGE: Stable. The patient should follow up with Dr. eBst in the next 1 to 2 weeks, with Neurology in the next 1 month and I will confirm the appointment with Dr. Fountain for 04/29/18 on Sunday. Please see the complete medical record for further details of this complicated hospitalization. TIME SPENT: Forty-five minutes was spent discharging this patient. [id number]/[facility] #: [id number]/[facility] #: [id number] [facility]
--- NOTE | 2018-02-09 20:40 | DS ---
CC: Dr. Villagran; Dr. Best; Dr. Bobo DISCHARGE SUMMARY: ADDENDUM: HOSPITAL COURSE: Of note, an appointment was made for Dr. Fountain in 3 months' time. A note was made with this appointment that she will need a followup CT scan prior. I will also contact the oncology office to determine where this appointment was made and if the biopsy should be held, at which point the patient will just continue on Eliquis indefinitely. The patient also developed rapid atrial fibrillation during the course of her hospitalization. She was seen in consultation by Dr. Buck. Adjustments were made with her rate controlling regimen. Diltiazem 120 mg p.o. daily and digoxin 0.25 mg p.o. daily were added to her medication regimen. With this, her heart rate has been under control. As above, the patient will be on Eliquis for now and if biopsy is needing to be performed then I will contact her and tell her when to hold her Eliquis and to begin the Lovenox and how to bridge this. Also of note, the patient did undergo MRI of the brain with contrast to rule out potential metastatic disease related to the pulmonary nodule seen on CTA of the chest. The MRI of the brain with contrast did not reveal any evidence to suggest metastatic disease. The patient was also found to have an elevated troponin of 0.2 on 02/07/18. My suspicion is that this is demand ischemia related to her atrial fibrillation. The patient has never had an ischemic workup and an outpatient stress test would be warranted. The patient can follow up with Dr. Bobo to discuss this further. FOLLOWUP CONCERNS: The patient is being discharged home today, 02/09/18. ACTIVITY LEVEL: As tolerated. DIET: Heart-healthy. CONDITION ON DISCHARGE: Stable. The patient should follow up with Dr. Best in the next 1 to 2 weeks, with Neurology in the next 1 month and I will confirm the appointment with Dr. Fountain for 04/29/18 on Sunday. Please see the complete medical record for further details of this complicated hospitalization. TIME SPENT: Forty five minutes was spent discharging this patient. [id number]/[facility] #: [id number] [facility]
== END 2018-02-09 13:10 | disposition home or self-care (01) | DRG 100 ==
LOC: ED 13:20 → ICU 17:09 → MEDTELE 02-06 21:27
PROVIDERS: ADMIT Internal Medicine; ATTEND Hospitalist
PROC: 4A10X4Z Monitoring of Central Nervous Electrical Activity, External Approach (ICD-10-PCS; principal; 2018-02-07)
DX: R56.9 Unspecified convulsions (principal); I63.9 Cerebral infarction, unspecified; I24.8 Other forms of acute ischemic heart disease; G81.91 Hemiplegia, unspecified affecting right dominant side; I42.9 Cardiomyopathy, unspecified; R29.704 NIHSS score 4; E78.5 Hyperlipidemia, unspecified; I10 Essential (primary) hypertension; R91.8 Other nonspecific abnormal finding of lung field; K76.89 Other specified diseases of liver; I34.0 Nonrheumatic mitral (valve) insufficiency; I65.29 Occlusion and stenosis of unspecified carotid artery; Z53.8 Procedure and treatment not carried out for other reasons; R91.1 Solitary pulmonary nodule; Z72.89 Other problems related to lifestyle; Z79.01 Long term (current) use of anticoagulants; I48.2 Chronic atrial fibrillation; I08.3 Combined rheumatic disorders of mitral, aortic and tricuspid valves
CPT/HCPCS: 36415; 70450; 70496; 70498; 70551; 70552; 71045; 71275; 76705; 80048; 80053; 80061; 80162; 81003; 83036; 83605; 83735; 84484; 85025; 85610; 85730; 86850; 86900; 86901; 87086; 87641; 93005; 93306; 95819; 99223; 99285; A9270-GY; A9579; J1160; J1644; J1650; Q9967

== ENCOUNTER 2019-01-18 13:43 | Emergency (ER) | payer MEDICARE, BC ==
[2019-01-18 15:54] VITALS: BP 161/81
--- NOTE | 2019-01-18 16:13 | UC ---
[facility] HPI - HPI Summary HPI Summary: Pt presents with c/o sudden onset of painful sores in mouth X 3-4 days. Pt denies eating any known allergen and denies any recent illness, fever, or viral syndrome. Denies any recent dental work. Pt has hx of canker sores. Pt denies rash on hands or feet. - History of Current Complaint Stated Complaint: ORAL COMPLAINT Time Seen by Provider: 01/18/19 15:50 Hx Obtained From: Patient ?: No Onset/Duration: Sudden Onset, Lasting Days, Still Present Severity: Moderate Pain Intensity: 7 Aggravating Factor(s): Heat, Cold, Chewing Alleviating Factor(s): Nothing - Allergies/Home Medications Allergies/Adverse Reactions: Allergies Allergy/AdvReac Type Severity Reaction Status Date / Time lisinopril AdvReac Unknown Coughing Verified 01/18/19 15:38 Home Medications: Home Medications Diltiazem CD CAP* [Cardizem CD CAP*] 360 mg PO DAILY 01/18/19 [History] Potassium Chloride [Klor-Con 10] 10 meq PO BID 01/18/19 [History Confirmed 01/18] lamoTRIgine [Lamotrigine] 100 mg PO BEDTIME 01/18/19 [History Confirmed 01/18/19 ] PMH/Surg Hx/FS Hx/Imm Hx Previously Healthy: Yes Cardiovascular History: Cardiac Disease, Hypertension, Atrial Fibrillation Other History Of: Anticoagulant Therapy - Surgical History Surgical History: Yes Surgery Procedure, Year, and Place: TUBAL LIGATION. cardioversion twice - Family History Known Family History: Positive: Cardiac Disease Negative: Blood Disorder - Social History Occupation: Retired Lives: With Family Alcohol Use: Rare Substance Use Type: None Smoking Status (MU): Never Smoked Tobacco Have You Smoked in the Last Year: No - Immunization History Most Recent Influenza Vaccination: 2018 Most Recent Pneumonia Vaccination: 2017 Vaccination Up to Date: Yes Review of Systems All Other Systems Reviewed And Are Negative: Yes Constitutional: Positive: Negative Skin: Positive: Negative Eyes: Positive: Negative ENT: Positive: Other - mouth sores Respiratory: Positive: Negative Cardiovascular: Positive: Negative Gastrointestinal: Positive: Negative Genitourinary: Positive: Negative Motor: Positive: Negative Neurovascular: Positive: Negative Musculoskeletal: Positive: Negative Neurological: Positive: Negative Psychological: Positive: Negative Is Patient Immunocompromised?: No Physical Exam Triage Information Reviewed: Yes Appearance: Well-Appearing Vital Signs: Initial Vital Signs Temp 98.6 F 01/18/19 15:44 Pulse 87 01/18/19 15:44 Resp 16 01/18/19 15:44 BP 161/81 01/18/19 15:44 Pulse Ox 98 01/18/19 15:44 Vital Signs Reviewed: Yes Eye Exam: Normal ENT Exam: Normal ENT: Positive: Normal ENT inspection Dental Exam: Other - large apthous sores on both inner posterior cheeks. Neck exam: Normal Neck: Positive: Supple, Nontender, No Lymphadenopathy Respiratory Exam: Normal Cardiovascular Exam: Normal Musculoskeletal Exam: Normal Neurological Exam: Normal Psychological Exam: Normal Skin Exam: Normal Dental Complaint Course/Dx - Differential Dx/Diagnosis Differential Diagnosis/Dx: Peridontic Disease, Other - hand, foot, mouth Provider Diagnosis: Aphthous ulcer Discharge ED - Sign-Out/Discharge Documenting (check all that apply): Patient Departure All imaging exams completed and their final reports reviewed: No Studies - Discharge Plan Condition: Stable Disposition: HOME Prescriptions: Cetirizine* [ZyrTEC 10 MG TAB*] 10 mg PO DAILY #5 tab Lidocaine 2% VISCOUS* [Xylocaine 2% Viscous*] 15 ml SWISH SPIT Q4H PRN #1 btl PRN Reason: Pain - Mild ValACYclovir (*) [Valtrex 1 GM(*)] 1 gm PO Q12H #14 tab Patient Education Materials: Canker Sores (ED) Referrals: Manjula Best MD [Primary Care Provider] - If Needed Additional Instructions: Please follow up with your dental care provider as soon as possible. - Billing Disposition and Condition Condition: STABLE Disposition: Home
== END 2019-01-18 16:26 | disposition home or self-care (01) ==
LOC: UCCORT 13:43
DX: K12.0 Recurrent oral aphthae (principal); I10 Essential (primary) hypertension; Z88.8 Allergy status to other drugs, medicaments and biological substances; Z79.899 Other long term (current) drug therapy
CPT/HCPCS: 99212; G0463